=== PATIENT | male | born 1940 | race Caucasian/White ===

== ENCOUNTER → 2017-01-24 | Day surgery (SDC) | payer MEDICARE ==
[~2017-01-24] MED LIST: ASPI-482 PO; BUDE3CAP2 PO; BYSTOLIC2.5 MG PO; CHOL100013 PO; DILT60TA3 PO; FURO20TA3 PO; HYDROmorphone 2 MG/ML VIAL IV PRN; IV RINGERS,LACTATED 1000ML 1,000 ML IV SCH; LEVO175T5 PO; LIDOCAINE 1% PF 2 ML VIAL. ID PRN; LIDOCAINE 2% PF Vial for OR 5 ML VIAL. ONE; LISI-338 PO; LISI10TA2 PO; MORPHINE SULFATE 4 MG/ML DISP.SYRIN. IV PRN; OMEP20TA63 PO; ONDANSETRON PF 4 MG/2 ML VIAL. IV PRN; PROCHLORPERAZINE 10 MG/2 ML VIAL. IV PRN; PROPOFOL 20 ML IV ONE; SILD20TA2 PO; TADA20TA33 PO; TIOT18CA IH; fentaNYL PF VIAL 100 MCG/2 ML VIAL IV PRN
[2017-01-24 08:31] VITALS: BP 145/87
== END | disposition home or self-care (01) ==
LOC: ENDOS 06:22
PROVIDERS: ATTEND Internal Medicine Gastroenterology
DX: D50.9 Iron deficiency anemia, unspecified (principal); K50.90 Crohn's disease, unspecified, without complications; K21.0 Gastro-esophageal reflux disease with esophagitis; Z86.010 Personal history of colon polyps; I10 Essential (primary) hypertension; K29.50 Unspecified chronic gastritis without bleeding; Z90.49 Acquired absence of other specified parts of digestive tract
CPT/HCPCS: 36415; 43235; 82607; J2704; J2001